=== PATIENT | female | born 1945 | race African-American/Black ===

== ENCOUNTER 2019-05-23 12:11 | Emergency (ER) | payer SELFPAY ==
[~2019-05-23] VITALS: Ht 162.6 cm; Wt 75.0 kg
[2019-05-23 12:42] VITALS: BP 173/71
[2019-05-23] MEDS ORDERED: LIDOCAINE HCL/PF 1% 10 MG/ML 5ML VIAL IJ ONE (13:30)
== END 2019-05-23 13:49 | disposition home or self-care (01) ==
LOC: ER 12:11
DX: S00.451A Superficial foreign body of right ear, initial encounter (principal); I10 Essential (primary) hypertension; W45.8XXA Other foreign body or object entering through skin, initial encounter; Y93.89 Activity, other specified; Y92.018 Other place in single-family (private) house as the place of occurrence of the external cause
CPT/HCPCS: 69200; 99284